=== PATIENT | female | born 1980 | race Caucasian/White ===

== ENCOUNTER 2016-09-01 13:30 | Emergency (ER) | payer MEDICAID, OTHER ==
[~2016-09-01] VITALS: Ht 160 cm; Wt 89.0 kg
[~2016-09-01 13:30] MED LIST: FERR325C PO; PREN-39 PO
[2016-09-01 13:43] VITALS: Ht 160 cm; Wt 89.0 kg
[2016-09-01 15:49] LABS: ADD SCAN DIFF NO
[2016-09-01 15:52] LABS: BASOPHILS % 0.5 % (0.0-2.0); EOSINOPHILS # 0.1 10^3/ul (0.0-0.5); EOSINOPHILS % 0.8 % (0.0-7.0); HEMATOCRIT 33.8 % (37.0-47.0); LYMPHOCYTES # 2.1 10^3/ul (0.8-2.9); MEAN CORPUSCULAR HEMOGLOBIN 26.8 pg (29.0-33.0); MEAN CORPUSCULAR HGB CONC 32.5 g/dl (32.0-37.0); MEAN CORPUSCULAR VOLUME 82.2 fl (82.0-101.0); MEAN PLATELET VOLUME 11.2 fl (7.4-10.4); MONOCYTE # 0.5 10^3/ul (0.3-0.9); MONOCYTES % 6.3 % (0.0-11.0); NEUTROPHIL # 5.3 10^3/ul (1.6-7.5); NEUTROPHILS % 66.3 % (39.0-77.0); PLATELET COUNT 224 10^3/UL (140-415); RED BLOOD COUNT 4.11 10^6/ul (4.20-5.40); RED CELL DISTRIBUTION WIDTH 13.6 % (11.5-14.5)
--- NOTE | 2016-09-01 16:03 | RADRPT ---
PROCEDURE: US Pelvis. CLINICAL INDICATION: vaginal bleeding TECHNIQUE: Multiple sonographic images of the pelvis were obtained utilizing a transabdominal and endovaginal technique. The images were reviewed on a PACS workstation. COMPARISON: None. FINDINGS: The uterus is normal in size and demonstrates a normal appearance of the myometrium. The endometria l stripe is homogeneous in appearance and has the thickness of 13 mm. There is a small Nabothian cys t in the cervix. No intrauterine gestation is noted. The ovaries are normal in size and echogenicity. Normal Doppler flow is identified in both ovaries. The right ovary measures 4.4 x 2.1 x 2.5 cm. The left ovary measures 3.7 x 2.5 x 2.4 cm. There is a simple cyst in the left ovary measuring 2 cm. There is a trace amount of free fluid in the cul-de-sac. RPTAT: AA IMPRESSION: No intrauterine gestation visualized. Differential diagnosis includes early , missed or ectopic . Simple cyst in the left ovary. Follow-up ultrasound and HCG levels is recommended. .William Alberts MD, MD Date Time Electronically viewed and signed by .William Alberts MD, on 09/01/2016 16:03 .S/
[2016-09-01 16:25] LABS: ADD UMIC YES; UR ASCORBIC ACID NEGATIVE (NEGATIVE); UR BILIRUBIN (Dip) NEGATIVE (NEGATIVE); UR BLOOD (Dip) 2+ mg/dL (NEGATIVE); UR CLARITY CLEAR (CLEAR); UR COLOR YELLOW (YELLOW); UR GLUCOSE (Dip) NEGATIVE (NEGATIVE); UR KETONES (Dip) NEGATIVE (NEGATIVE); UR LEUKOCYTE ESTERASE (Dip) NEGATIVE Leu/ul (NEGATIVE); UR NITRITE (Dip) NEGATIVE (NEGATIVE); UR RBC 1 /HPF (0-5); UR SPECIFIC GRAVITY (Dip) 1.019 (1.003-1.030); UR SQUAMOUS EPITHELIAL CELL FEW /HPF (FEW); UR TOTAL PROTEIN (Dip) NEGATIVE (NEGATIVE); UR UROBILINOGEN (Dip) NEGATIVE (NEGATIVE)
[2016-09-01] MEDS ORDERED: ACET500C5 PO (16:50)
--- NOTE | 2016-09-01 17:00 | ERD ---
ER Documentation Chief Complaint Date/Time DATE: 09/01/16 TIME: 16:55 Chief Complaint HOME PREG TEST POSITIVE LMP 08/13, SPOTTING HPI 35-year-old female who had a positive home test is complaining of spotting 2 days. States that it is coffee colored. She reports mild pelvic pain, and burning with urination. Patient is SAB 1, LMP 08/13/2016. Denies fever or chills. Denies vomiting or diarrhea ROS All systems reviewed and are negative except as per history of present illness. Medications Home Meds Active Scripts Acetaminophen* (Tylophen*) 500 Mg Capsule, 1 CAP PO Q6H Y for PAIN AND OR ELEVATED TEMP, #20 CAP Prov:DENIA SHOOK [employer] 09/01/16 Reported Medications Ferrous Sulfate (Iron) 325 Mg Capsr, 325 MG PO AM 11/20/10 Vits W-Ca,Fe,Fa(<1MG) ( Vitamins) 1 Tab Tablet, 1 TAB PO AM 11/20/10 Allergies Allergies: Coded Allergies: No Known Drug Allergies (Verified Allergy, 11/20/10) PMhx/Soc Medical and Surgical Hx: pt denies Medical Hx, pt denies Surgical Hx Hx Alcohol Use: No Hx Substance Use: No Hx Tobacco Use: No Smoking Status: Never smoker Physical Exam Vitals Vital Signs Date Time Temp Pulse Resp B/P Pulse Ox O2 Delivery O2 Flow Rate FiO2 09/01/16 13:43 98.0 60 20 110/56 99 Physical Exam General: Well-developed, well-nourished, conscious and coherent, in no distress Skin: Warm and dry without rash, good texture and turgor Head: Normocephalic without evidence of trauma Eyes: Sclera and conjunctivae normal; pupils equal, round, and reactive to light; extraocular movements are intact Neck: Supple without meningismus or adenopathy. Carotids are equal. Trachea midline. No bruits or JVD Chest: Normal AP diameter. Good expansion without retractions. Nontender. Lungs are clear to auscultate bilaterally with good tidal volume Heart: Regular rate and rhythm. No murmur, rub, or gallops heard Abdomen: Soft and nontender without masses, guarding, or rebound. Bowel sounds are active. No hepatosplenomegaly Back: Without spinal or CVA tenderness Pelvis: Mildly tender. Extremities: Full range of motion. Good strength bilaterally. No clubbing, cyanosis, or edema. Peripheral pulses are intact. Sensation intact Neuro: Alert and oriented 4, GCS 15. Cranial nerves grossly intact. Motor and sensory exams nonfocal. Moves all extremities. Speech clear. Gait normal Result Diagram: 09/01/16 1537 Results 24 hrs Laboratory Tests Test 09/01/16 15:37 White Blood Count 8.010^3/ul Red Blood Count 4.1110^6/ul Hemoglobin 11.0g/dl Hematocrit 33.8% Mean Corpuscular Volume 82.2fl Mean Corpuscular Hemoglobin 26.8pg Mean Corpuscular Hemoglobin Concent 32.5g/dl Red Cell Distribution Width 13.6% Platelet Count 35744^3/UL Mean Platelet Volume 11.2fl Neutrophils % 66.3% Lymphocytes % 26.0% Monocytes % 6.3% Eosinophils % 0.8% Basophils % 0.5% Nucleated Red Blood Cells % 0.0/100WBC Neutrophils # 5.310^3/ul Lymphocytes # 2.110^3/ul Monocytes # 0.510^3/ul Eosinophils # 0.110^3/ul Basophils # 0.010^3/ul Nucleated Red Blood Cells # 0.010^3/ul Urine Color YELLOW Urine Clarity CLEAR Urine pH 6.0 Urine Specific [place] 1.019 Urine Ketones NEGATIVEmg/dL Urine Nitrite NEGATIVEmg/dL Urine Bilirubin NEGATIVEmg/dL Urine Urobilinogen NEGATIVEmg/dL Urine Leukocyte Esterase NEGATIVELeu/ul Urine Microscopic RBC 1/HPF Urine Microscopic WBC 1/HPF Urine Squamous Epithelial Cells FEW/HPF Urine Hemoglobin 2+mg/dL Urine Glucose NEGATIVEmg/dL Urine Total Protein NEGATIVEmg/dl Beta HCG, Quantitative < 2.4mIU/ml PROCEDURE: US Pelvis. CLINICAL INDICATION: vaginal bleeding TECHNIQUE: Multiple sonographic images of the pelvis were obtained utilizing a transabdominal and endovaginal technique. The images were reviewed on a PACS workstation. COMPARISON: None. FINDINGS: The uterus is normal in size and demonstrates a normal appearance of the myometrium. The endometrial stripe is homogeneous in appearance and has the thickness of 13 mm. There is a small Nabothian cyst in the cervix. No intrauterine gestation is noted. The ovaries are normal in size and echogenicity. Normal Doppler flow is identified in both ovaries. The right ovary measures 4.4 x 2.1 x 2.5 cm. The left ovary measures 3.7 x 2.5 x 2.4 cm. There is a simple cyst in the left ovary measuring 2 cm. There is a trace amount of free fluid in the cul-de-sac. RPTAT: AA IMPRESSION: No intrauterine gestation visualized. Differential diagnosis includes early , missed or ectopic . Simple cyst in the left ovary. Follow-up ultrasound and HCG levels is recommended. .William Alberts MD, MD Date Time Electronically viewed and signed by .William Alberts MD, MD on 09/01/2016 16: 03 .S/ CC: DENIA SHOOK NP Procedures/MDM ED course: CBC: Unremarkable. Beta hCG: Less than 2.4 UA: 2+ blood, otherwise negative. Blood type: B+. RhoGAM is not indicated for patient. OB ultrasound: No intrauterine or ectopic is noted. Normal blood flow to bilateral ovaries. Small left ovarian cyst is seen. Medical decision-making: Well-appearing 35-year-old female complaining of vaginal bleeding. Her beta hCG quant is less than 2.4, patient does not meet the criteria for . Ultrasound was also negative. Likely this represents irregular menses. Medications on discharge: Tylenol. Follow-up: Primary care provider in 2 days or return to ED if worse. Departure Diagnosis: Primary Impression: Vaginal bleeding in patient at less than 20 weeks ges... Condition: Stable Patient Instructions: Bleeding During Early Referrals: ALLAN MASON MD (PCP) Additional Instructions: Llame al doctor MAANA y alexandra nelson KLAUDIA PARA DENTRO DE 2-3 HECK.Dgale a la secretaria que nosotros le instruimos hacer esta klaudia.Avise o llame si neumann condicin se empeora antes de la klaudia. Regresa aqui si peor o no mejor. DENIA SHOOK NP Sep 01, 2016 17:00
== END 2016-09-01 17:59 | disposition home or self-care (01) ==
LOC: FTE 13:30
DX: O20.9 Hemorrhage in early pregnancy, unspecified (principal); R10.2 Pelvic and perineal pain; Z3A.00 Weeks of gestation of pregnancy not specified
CPT/HCPCS: 76801; 76817; 81001; 84702; 85025; 86900; 86901